=== PATIENT | male | born 1945 | race Caucasian/White ===

== ENCOUNTER 2018-03-03 16:43 | Inpatient (IN) | payer MEDICARE, OTHER ==
[~2018-03-03] VITALS: Ht 170.2 cm; Wt 72.0 kg
--- NOTE | 2018-03-03 11:30 | NUR ---
Patient in room ED 7. I have received report from Brittany BARLOW and had the opportunity to ask questions and assume patient care.
[2018-03-03 11:35] VITALS: BP 101/40
[2018-03-03] MEDS ORDERED: normal saline 1000ml 1,000 ML IV ONE (17:00)
[2018-03-03] MEDS ORDERED: pantoprazole IV 80 MG in normal saline 100ml IV soln 100 ML IV ONE (17:15)
[2018-03-03] MEDS ORDERED: ondansetron/PF 4mg/2ml inj IV ONE (17:15)
[2018-03-03] MEDS ORDERED: pantoprazole 40 MG vial IV ONE (17:20)
[2018-03-03 17:23] LABS: BASOPHILS % (AUTO) 0.1 % (0-1); EOSINOPHILS # (AUTO) 0.1 X10'3 (0-0.9); EOSINOPHILS % (AUTO) 1.2 % (0-6); LYMPHOCYTES # (AUTO) 0.8 X10'3 (1.1-4.8); LYMPHOCYTES % (AUTO) 12.7 % (21-51); MEAN CORPUSCULAR HEMOGLOBIN 30.7 PG (27.0-31.0); MEAN CORPUSCULAR HGB CONC 33.3 % (33.0-36.5); MEAN CORPUSCULAR VOLUME 92.4 FL (78-98); MEAN PLATELET VOLUME 8.9 FL (7.4-10.4); MONOCYTES # (AUTO) 0.4 X10'3 (0-0.9); NEUTROPHILS # (AUTO) 4.8 X10'3 (1.8-7.7); PLATELET COUNT 191 X10'3 (140-440); RED BLOOD COUNT 1.88 X10'6 (4.70-6.10); WHITE BLOOD COUNT 6.1 X10'3 (4.5-11.0)
[2018-03-03 17:26] LABS: HEMOGLOBIN 5.8 g/dl (14.0-17.9)
[2018-03-03 17:27] LABS: HEMATOCRIT 17.4 % (42.0-52.0)
[2018-03-03 17:29] LABS: INR 1.1 INR; PARTIAL THROMBOPLASTIN TIME 30 SECONDS (22-32); PROTHROMBIN TIME 10.7 SECONDS (9.0-12.0)
[2018-03-03 17:31] LABS: ALANINE AMINOTRANSFERASE 16 U/L (12-78); ALBUMIN/GLOBULIN RATIO 0.8 (1.1-1.5); ALKALINE PHOSPHATASE 50 IU/L (46-116); ANION GAP 16 (8-16); ASPARTATE AMINO TRANSFERASE 15 U/L (10-37); BILIRUBIN,TOTAL 0.3 MG/DL (0.1-1.0); BLOOD UREA NITROGEN 118 MG/DL (7-18); BUN/CREATININE RATIO 19.2 (5.4-32.0); CALCIUM 7.5 MG/DL (8.5-10.1); CHLORIDE 105 MMOL/L (99-107); CREATININE 6.14 MG/DL (0.60-1.10); GLUCOSE 170 MG/DL (70-104); POTASSIUM 5.1 MMOL/L (3.5-5.1); SODIUM 137 MMOL/L (135-145); TOTAL CARBON DIOXIDE 16.1 MMOL/L (24-32); TOTAL PROTEIN 6.6 G/DL (6.4-8.2); eGFR 9 ML/MIN
--- NOTE | 2018-03-03 17:33 | NUR ---
blood consent signed. pt resting vss
[2018-03-03] MEDS: pantoprazole 40MG/NS 100ML BAG 100 ML IV SCH ×2 (18:48→23:06)
--- NOTE | 2018-03-03 18:50 | NUR ---
pt is resting quietly on gurney, resp even and unlabored, waiting for blood transfusion, pt has no complaints, no dizziness, no chest pain/discomfort, no SOB, no n/v, protonix gtt started at 8mg/hr (20ml/hr)
--- NOTE | 2018-03-03 19:37 | NUR ---
per lab, one unit of blood is ready, 2nd unit has to come from [place], approx in 4 hours
[2018-03-03 19:56] VITALS: BP 91/43
--- NOTE | 2018-03-03 20:00 | NUR ---
1st unit PRBC started, see vital signs under transfusions
[2018-03-03 20:10] VITALS: BP 100/46
[2018-03-03 20:25] VITALS: BP 100/50
[2018-03-03 20:38] VITALS: BP 102/42
[2018-03-03] MEDS ORDERED: temazepam 15mg capsule PO PRN (21:00)
[2018-03-03 21:02] VITALS: BP 104/44
[2018-03-03] MEDS ORDERED: morphine 4 MG/ML inj SYRINge IV PRN ×2 (22:00)
[2018-03-03] MEDS ORDERED: acetaminophen 325mg tablet PO PRN ×2 (22:00)
[2018-03-03] MEDS ORDERED: ondansetron/PF 4mg/2ml inj IV PRN (22:00)
[2018-03-03] MEDS ORDERED: diphenhydrAMINE 25mg capsule PO PRN (22:00)
[2018-03-03] MEDS ORDERED: magnesium hydroxide 30ml (MOM) UD suspension PO PRN (22:00)
[2018-03-03] MEDS ORDERED: metoclopramide 5 mg/ml inj IV PRN (22:00)
[2018-03-03] MEDS ORDERED: bisacodyl 10mg suppository rectal RC PRN (22:00)
[2018-03-03] MEDS ORDERED: diphenhydrAMINE 50 mg/ml inj IV PRN (22:00)
[2018-03-03] MEDS ORDERED: mag hydrox/Alum hydrox/simeth 30ml oral suspension PO PRN (22:00)
[2018-03-03] MEDS ORDERED: dextrose 50%-water 50ml dispensing syringe IV PRN ×2 (22:05)
[2018-03-03] MEDS ORDERED: glucagon, human recombinant 1mg kit SUBCUT PRN (22:05)
[2018-03-03] MEDS ORDERED: insulin Lispro (HumaLOG) vial - multi-dose SQ SCH (22:05)
[2018-03-03] MEDS ORDERED: dextrose ORAL solution 15 GM/59 ML bottle PO PRN ×2 (22:05)
[2018-03-03] MEDS ORDERED: MESSAGE TO PHARMACY PO ONE (22:05)
[2018-03-03 22:30] LABS: HEMOGLOBIN A1C 7.9 % (4.5-6.2)
--- NOTE | 2018-03-03 22:34 | NUR ---
pt to CT,
[2018-03-03 22:45] LABS: CREATINE KINASE 35 U/L (39-308); LIPASE 300 U/L (73-393); MAGNESIUM 1.6 MG/DL (1.5-2.4); PHOSPHORUS 7.9 MG/DL (2.3-4.5)
[2018-03-03 22:48] LABS: TROPONIN I 1.05 NG/ML (0.0-0.05)
--- NOTE | 2018-03-03 22:54 | NUR ---
DR CHAVIS AWARE OF TROP 1.05, PT CONTINUES TO REST QUIETLY ON GURNEY, NO CHEST PAIN/DISCOMFORT, NO N/V, NO SOB, "I FEEL BETTER AFTER THE BLOOD", PT IS GCS 15, ALERT AND ORIENTED, RESP EVEN AND UNLABORED, SKIN PALE, WARM AND DRY, WAITING FOR BED ASSIGNMENT
[2018-03-03 22:55] LABS: PARTIAL THROMBOPLASTIN TIME 23 SECONDS (22-32); PROTHROMBIN TIME 10.5 SECONDS (9.0-12.0)
[2018-03-03] MEDS: normal saline 1000ml 1,000 ML IV SCH (23:06)
--- NOTE | 2018-03-03 23:15 | NUR ---
REPORT TO IBRAHIMA BARLOW
[2018-03-04] VITALS (22 sets, daily range): BP systolic 84–145; BP diastolic 30–67
[2018-03-04] MEDS: pantoprazole 40MG/NS 100ML BAG 100 ML IV SCH ×2 (01:00→04:27)
--- NOTE | 2018-03-04 06:50 | NUR ---
Patient in room PCU 3012. I have received report from YEN ALEXANDRA, and had the opportunity to ask questions and assume patient care.
[2018-03-04 06:51] LABS: BASOPHILS % (AUTO) 0.3 % (0-1); EOSINOPHILS # (AUTO) 0.2 X10'3 (0-0.9); EOSINOPHILS % (AUTO) 3.5 % (0-6); HEMATOCRIT 23.3 % (42.0-52.0); HEMOGLOBIN 7.8 g/dl (14.0-17.9); LYMPHOCYTES # (AUTO) 1.2 X10'3 (1.1-4.8); LYMPHOCYTES % (AUTO) 20.3 % (21-51); MEAN CORPUSCULAR HEMOGLOBIN 30.3 PG (27.0-31.0); MEAN CORPUSCULAR HGB CONC 33.6 % (33.0-36.5); MEAN CORPUSCULAR VOLUME 90.3 FL (78-98); MEAN PLATELET VOLUME 9.1 FL (7.4-10.4); MONOCYTES # (AUTO) 0.5 X10'3 (0-0.9); MONOCYTES % (AUTO) 7.9 % (2-12); PLATELET COUNT 182 X10'3 (140-440); RED BLOOD COUNT 2.57 X10'6 (4.70-6.10); RED CELL DISTRIBUTION WIDTH 16.5 % (11.5-14.5); WHITE BLOOD COUNT 5.9 X10'3 (4.5-11.0)
[2018-03-04 07:19] LABS: ALANINE AMINOTRANSFERASE 15 U/L (12-78); ALBUMIN 2.9 G/DL (3.4-5.0); ALBUMIN/GLOBULIN RATIO 0.8 (1.1-1.5); ALKALINE PHOSPHATASE 50 IU/L (46-116); ANION GAP 17 (8-16); ASPARTATE AMINO TRANSFERASE 12 U/L (10-37); BILIRUBIN,TOTAL 0.3 MG/DL (0.1-1.0); BLOOD UREA NITROGEN 119 MG/DL (7-18); BUN/CREATININE RATIO 19.7 (5.4-32.0); CALCIUM 7.6 MG/DL (8.5-10.1); CHLORIDE 108 MMOL/L (99-107); CHOL/HDL RATIO 2.6 (0.00-4.99); CHOLESTEROL 64 MG/DL (0-200); CREATININE 6.05 MG/DL (0.60-1.10); GLUCOSE 84 MG/DL (70-104); HDL CHOLESTEROL 25 MG/DL (35-60); LDL CHOLESTEROL 25 MG/DL (50-100); POTASSIUM 5.2 MMOL/L (3.5-5.1); SODIUM 140 MMOL/L (135-145); TOTAL PROTEIN 6.6 G/DL (6.4-8.2); TRIGLYCERIDES 130 MG/DL (20-135); eGFR 9 ML/MIN
[2018-03-04 07:42] LABS: TOTAL CARBON DIOXIDE 14.8 MMOL/L (24-32)
[2018-03-04] MEDS: normal saline 1000ml 1,000 ML IV SCH ×4 (07:58→18:54)
[2018-03-04] MEDS: docusate sod 100mg capsule PO SCH ×2 (08:00→20:00)
[2018-03-04] MEDS ORDERED: MIDAZolam 5mg/5ml vial ONE (08:50)
[2018-03-04] MEDS ORDERED: fentaNYL/PF 50MCG/1 ML 2ML syringe ONE (08:50)
[2018-03-04] MEDS ORDERED: LIDOcaine Viscous 15ml cup ONE (08:51)
--- NOTE | 2018-03-04 10:50 | NUR ---
PATIENT BACK FROM GI LAB
--- NOTE | 2018-03-04 10:59 | NUR ---
PAGED FOR ECHO
--- NOTE | 2018-03-04 11:30 | NUR ---
Spoke with Dr. Anderson about concerning BUN/Cr lab values who said she will order UA studies, IV fluids, and consult greens tier.
--- NOTE | 2018-03-04 11:56 | NUR ---
DM consult: Pt with A1c 7.9. Pt seen at bedside states he sees an MD q month for DM management, takes his meds per rx, and checks his BG levels 2 times a day with resulting numbers generally 160-170. Pt states he doesn't currently follow any special diet at home to help with DM management however he does look at CHO content on nutrition facts label. Pt denies interest in learning about alternative ways to monitor CHO intake at this time. Pt given written DM education with referral to outpatient DM class. All questions answered at this time. RD contact given to pt should he have any further questions. Will remain available. Addendum: 03/04/18 at [address] Amended: Links added.
[2018-03-04 13:21] LABS: CLARITY,URINE CLEAR (Clear); COLOR,URINE YELLOW (Yellow); GLUCOSE, URINE NEGATIVE (Neg); KETONES,URINE NEGATIVE (Neg); LEUKOCYTE ESTERASE ,URINE NEGATIVE (Neg); NITRITES, URINE NEGATIVE (Neg); OCCULT BLOOD,URINE NEGATIVE (Neg); PH,URINE 5.5 (4.8-8.0); PROTEIN,URINE 100 mg/dl (Neg); UROBILINOGEN,URINE 0.2 E.U/dL (0.2-1.0)
[2018-03-04 13:28] LABS: UA COLLECTION TYPE URINAL
[2018-03-04 13:29] LABS: BACTERIA,URINE FEW /HPF (Neg); HYALINE CASTS 0-3 /LPF (NEGATIVE); RBC,URINE 0-2 /HPF (0-2); SQUAMOUS EPITHELIAL CELL,UR FEW /LPF (FEW); WBC,URINE 0-4 /HPF (0-4)
[2018-03-04 13:43] LABS: TOTAL PROTEIN,URINE RANDOM 87.7 MG/DL
[2018-03-04 14:47] LABS: UA EOSINOPHILS NO EOS /HPF
[2018-03-04] MEDS ORDERED: PANT-47 PO (15:18)
[2018-03-04] MEDS ORDERED: DOCU100C41 PO (15:18)
[2018-03-04] MEDS ORDERED: LISI10TA4 PO (15:18)
[2018-03-04] MEDS ORDERED: FURO-149 PO (15:19)
[2018-03-04] MEDS ORDERED: AFRIN NS (15:20)
[2018-03-04] MEDS ORDERED: GEMF600T89 PO (15:21)
[2018-03-04] MEDS ORDERED: SODI30SP3 BOTHNARES (15:21)
[2018-03-04] MEDS ORDERED: METO-539 PO (15:23)
[2018-03-04] MEDS ORDERED: DIGO125T97 PO (15:23)
[2018-03-04] MEDS ORDERED: TERA10CA4 PO (15:24)
[2018-03-04] MEDS ORDERED: LIDO30CR TP (15:25)
[2018-03-04] MEDS ORDERED: CHOL100046 PO (15:28)
[2018-03-04] MEDS ORDERED: OMEG1CAP13 PO (15:28)
[2018-03-04] MEDS ORDERED: CLOP75TA33 PO (15:29)
[2018-03-04] MEDS ORDERED: ALBU8.5H8 IH (15:29)
[2018-03-04] MEDS ORDERED: ATOR40TA PO (15:30)
[2018-03-04] MEDS ORDERED: CYAN-19 PO (15:30)
[2018-03-04] MEDS ORDERED: ASPI-611 PO (15:30)
[2018-03-04] MEDS ORDERED: SPIR25TA5 PO (15:31)
[2018-03-04] MEDS ORDERED: AMLO10TA PO (15:32)
[2018-03-04] MEDS ORDERED: GUAI237S46 PO (15:33)
[2018-03-04] MEDS ORDERED: HUM7525 SQ (15:35)
[2018-03-04] MEDS ORDERED: INSU100V9 SQ (15:36)
--- NOTE | 2018-03-04 15:40 | NUR ---
patient c/o chest pain/pressure. EKG and troponin to be done. Dr. Monica yadav at this time. will continue to monitor.
[2018-03-04] MEDS ORDERED: FLUO20CA39 PO (15:42)
--- NOTE | 2018-03-04 15:46 | NUR ---
PAGED DR. MARIN ABOUT CHEST PAIN/PRESSURE "Re: [id number] JER[address] DYSON C/O CHEST PAIN AND PRESSURE. EKG AND TROPONIN BEING DONE PREVIOUS TROP WAS ELEVATED (1.05). THANKS, YURY [id number]"
--- NOTE | 2018-03-04 15:50 | NUR ---
RN BROUGHT EKG WITH PREVIOUS READING TO DR. MARIN IN HOSPITALIST OFFICE. RECEIVED VERBAL ORDERS FROM DR. MARIN FOR PLAVIX NOW AND TO RESUME PLAVIX, NITRO SUBLINGUAL, CBC+BMP WELL SERIAL TROPONINS. WILL CONTINUE TO MONITOR.
[2018-03-04] MEDS: nitroGLYCERIN 0.4mg SUBLingual tab SL PRN (16:15)
[2018-03-04] MEDS: clopidogrel 75mg tablet PO SCH (16:15)
[2018-03-04 16:39] LABS: BASOPHILS % (AUTO) 0.2 % (0-1); EOSINOPHILS # (AUTO) 0.2 X10'3 (0-0.9); EOSINOPHILS % (AUTO) 3.1 % (0-6); HEMATOCRIT 24.6 % (42.0-52.0); HEMOGLOBIN 8.2 g/dl (14.0-17.9); LYMPHOCYTES # (AUTO) 0.8 X10'3 (1.1-4.8); LYMPHOCYTES % (AUTO) 12.3 % (21-51); MEAN CORPUSCULAR HEMOGLOBIN 30.2 PG (27.0-31.0); MEAN CORPUSCULAR HGB CONC 33.2 % (33.0-36.5); MEAN CORPUSCULAR VOLUME 90.8 FL (78-98); MEAN PLATELET VOLUME 9.3 FL (7.4-10.4); MONOCYTES # (AUTO) 0.4 X10'3 (0-0.9); MONOCYTES % (AUTO) 5.7 % (2-12); NEUTROPHILS # (AUTO) 5.1 X10'3 (1.8-7.7); NEUTROPHILS % (AUTO) 78.7 % (42-75); PLATELET COUNT 191 X10'3 (140-440); RED BLOOD COUNT 2.71 X10'6 (4.70-6.10); RED CELL DISTRIBUTION WIDTH 16.7 % (11.5-14.5); WHITE BLOOD COUNT 6.5 X10'3 (4.5-11.0)
[2018-03-04 17:23] LABS: ANION GAP 19 (8-16); BLOOD UREA NITROGEN 114 MG/DL (7-18); BUN/CREATININE RATIO 19.6 (5.4-32.0); CALCIUM 7.5 MG/DL (8.5-10.1); CHLORIDE 107 MMOL/L (99-107); CREATININE 5.81 MG/DL (0.60-1.10); GLUCOSE 140 MG/DL (70-104); MAGNESIUM 1.6 MG/DL (1.5-2.4); PHOSPHORUS 7.8 MG/DL (2.3-4.5); POTASSIUM 4.9 MMOL/L (3.5-5.1); SODIUM 139 MMOL/L (135-145); eGFR 10 ML/MIN
--- NOTE | 2018-03-04 17:23 | NUR ---
paged Dr. Anderson for med rec "CAN YOU ADDRESS MED [place]EM[place]H [place] [address]? THANK YOU, YURY [facility] [phone]"
[2018-03-04 17:27] LABS: TOTAL CARBON DIOXIDE 13.2 MMOL/L (24-32)
--- NOTE | 2018-03-04 18:07 | NUR ---
Patient in room PCU 3012. I have received report from Steffany BARLOW and had the opportunity to ask questions and assume patient care.
--- NOTE | 2018-03-04 18:07 | NUR ---
Problems reprioritized. Patient report given, questions answered & plan of care reviewed with YEN STALLINGS.
[2018-03-05] VITALS (7 sets, daily range): BP systolic 132–160; BP diastolic 47–61
[2018-03-05] MEDS: normal saline 1000ml 1,000 ML IV SCH ×3 (01:37→13:58)
[2018-03-05 03:07] LABS: BASOPHILS % (AUTO) 0.4 % (0-1); EOSINOPHILS # (AUTO) 0.1 X10'3 (0-0.9); EOSINOPHILS % (AUTO) 1.5 % (0-6); HEMATOCRIT 25.4 % (42.0-52.0); HEMOGLOBIN 8.3 g/dl (14.0-17.9); LYMPHOCYTES # (AUTO) 0.6 X10'3 (1.1-4.8); LYMPHOCYTES % (AUTO) 7.7 % (21-51); MEAN CORPUSCULAR HEMOGLOBIN 29.7 PG (27.0-31.0); MEAN CORPUSCULAR HGB CONC 32.7 % (33.0-36.5); MEAN PLATELET VOLUME 8.8 FL (7.4-10.4); MONOCYTES # (AUTO) 0.2 X10'3 (0-0.9); MONOCYTES % (AUTO) 2.9 % (2-12); NEUTROPHILS # (AUTO) 6.5 X10'3 (1.8-7.7); NEUTROPHILS % (AUTO) 87.5 % (42-75); PLATELET COUNT 219 X10'3 (140-440); RED CELL DISTRIBUTION WIDTH 16.5 % (11.5-14.5); WHITE BLOOD COUNT 7.4 X10'3 (4.5-11.0)
[2018-03-05 03:22] LABS: GLUCOSE 156 MG/DL (70-104); SODIUM 141 MMOL/L (135-145)
[2018-03-05 03:23] LABS: ALANINE AMINOTRANSFERASE 14 U/L (12-78); ALBUMIN 2.9 G/DL (3.4-5.0); ALBUMIN/GLOBULIN RATIO 0.8 (1.1-1.5); ALKALINE PHOSPHATASE 63 IU/L (46-116); ANION GAP 16 (8-16); ASPARTATE AMINO TRANSFERASE 11 U/L (10-37); BILIRUBIN,TOTAL 0.2 MG/DL (0.1-1.0); BLOOD UREA NITROGEN 109 MG/DL (7-18); BUN/CREATININE RATIO 22.2 (5.4-32.0); CALCIUM 7.5 MG/DL (8.5-10.1); CHLORIDE 110 MMOL/L (99-107); CREATININE 4.92 MG/DL (0.60-1.10); POTASSIUM 4.9 MMOL/L (3.5-5.1); TOTAL PROTEIN 6.7 G/DL (6.4-8.2); eGFR 12 ML/MIN
[2018-03-05 03:24] LABS: TOTAL CARBON DIOXIDE 14.8 MMOL/L (24-32)
--- NOTE | 2018-03-05 06:14 | NUR ---
Problems reprioritized. Patient report given, questions answered & plan of care reviewed with Bryan BARLOW. Addendum: 03/05/18 at 0615 by Heavenly Martin RN [place] BARLOW
--- NOTE | 2018-03-05 06:15 | NUR ---
Patient in room PCU 3012. I have received report from Heavenly BARLOW and had the opportunity to ask questions and assume patient care.
[2018-03-05] MEDS: docusate sod 100mg capsule PO SCH ×2 (07:43→20:26)
[2018-03-05] MEDS: clopidogrel 75mg tablet PO SCH (07:43)
[2018-03-05] MEDS ORDERED: magnesium hydroxide 30ml (MOM) UD suspension PO ONE (08:40)
[2018-03-05] MEDS ORDERED: metoprolol tartrate 25mg tablet PO SCH (08:40)
--- NOTE | 2018-03-05 09:10 | NUR ---
PIV in left forearm D/C'd at 0910. Catheter intact. IV was leaking and catheter had been dislodged from vein.
[2018-03-05] MEDS: isosorbide mononitrate 30mg tab.SR.24H PO SCH (10:21)
[2018-03-05] MEDS: atorvastatin 20mg tablet PO SCH (10:21)
--- NOTE | 2018-03-05 13:47 | NUR ---
Paged Dr. Edward to address med rec. PAGER ID: [phone] MESSAGE: Bryan Rocha RN [phone] Ajay Gunter: Per Pharmacy, please address patient's med rec. Thank you.
[2018-03-05] MEDS: pantoprazole 40 MG vial IV SCH (16:58)
[2018-03-05] MEDS ORDERED: albuterol 2.5 MG/3 ML nebule NEB PRN (17:00)
[2018-03-05] MEDS ORDERED: EPA PO SCH (20:00)
[2018-03-05] MEDS ORDERED: DOCOSAHEXANOIC ACID PO SCH (20:00)
[2018-03-05] MEDS: terazosin 5mg capsule PO SCH (20:27)
[2018-03-05] MEDS: gemfibrozil 600mg tablet PO SCH (20:28)
[2018-03-06] VITALS (13 sets, daily range): BP systolic 99–141; BP diastolic 38–61
--- NOTE | 2018-03-06 06:10 | NUR ---
Problems reprioritized. Patient report given, questions answered & plan of care reviewed with Zaida BARLOW.
--- NOTE | 2018-03-06 06:58 | NUR ---
Patient in room PCU 3012. I have received report from YEN ALEXANDRA SBAR AND BEDSIDE and had the opportunity to ask questions and assume patient care.
[2018-03-06 07:09] LABS: BASOPHILS % (AUTO) 0.4 % (0-1); EOSINOPHILS # (AUTO) 0.2 X10'3 (0-0.9); EOSINOPHILS % (AUTO) 3.4 % (0-6); LYMPHOCYTES # (AUTO) 0.8 X10'3 (1.1-4.8); LYMPHOCYTES % (AUTO) 14.9 % (21-51); MEAN CORPUSCULAR HGB CONC 33.5 % (33.0-36.5); MEAN CORPUSCULAR VOLUME 89.4 FL (78-98); MEAN PLATELET VOLUME 8.6 FL (7.4-10.4); MONOCYTES # (AUTO) 0.3 X10'3 (0-0.9); MONOCYTES % (AUTO) 5.5 % (2-12); NEUTROPHILS # (AUTO) 3.8 X10'3 (1.8-7.7); NEUTROPHILS % (AUTO) 75.8 % (42-75); PLATELET COUNT 225 X10'3 (140-440); RED BLOOD COUNT 2.28 X10'6 (4.70-6.10); RED CELL DISTRIBUTION WIDTH 17.5 % (11.5-14.5); WHITE BLOOD COUNT 5.1 X10'3 (4.5-11.0)
[2018-03-06] MEDS ORDERED: metoprolol succinate 25mg (24-HOUR) SR. Tablet PO SCH (08:00)
[2018-03-06] MEDS ORDERED: pantoprazole 40mg Tablet.DR PO SCH (08:00)
[2018-03-06] MEDS: pantoprazole 40 MG vial IV SCH (08:00)
[2018-03-06] MEDS ORDERED: clopidogrel 75mg tablet PO SCH (08:00)
[2018-03-06] MEDS: docusate sod 100mg capsule PO SCH ×3 (08:00→20:03)
[2018-03-06] MEDS: atorvastatin 20mg tablet PO SCH ×2 (08:00→09:01)
[2018-03-06] MEDS: clopidogrel 75mg tablet PO SCH (08:00)
[2018-03-06 08:03] LABS: ALANINE AMINOTRANSFERASE 13 U/L (12-78); ALBUMIN 2.6 G/DL (3.4-5.0); ALBUMIN/GLOBULIN RATIO 0.7 (1.1-1.5); ALKALINE PHOSPHATASE 45 IU/L (46-116); ANION GAP 14 (8-16); ASPARTATE AMINO TRANSFERASE 11 U/L (10-37); BILIRUBIN,TOTAL 0.4 MG/DL (0.1-1.0); BLOOD UREA NITROGEN 78 MG/DL (7-18); BUN/CREATININE RATIO 25.2 (5.4-32.0); CALCIUM 7.8 MG/DL (8.5-10.1); CHLORIDE 112 MMOL/L (99-107); GLUCOSE 108 MG/DL (70-104); POTASSIUM 4.5 MMOL/L (3.5-5.1); SODIUM 142 MMOL/L (135-145); TOTAL CARBON DIOXIDE 15.7 MMOL/L (24-32); TOTAL PROTEIN 6.2 G/DL (6.4-8.2); eGFR 20 ML/MIN
[2018-03-06 08:07] LABS: HEMATOCRIT 20.4 % (42.0-52.0); HEMOGLOBIN 6.9 g/dl (14.0-17.9)
--- NOTE | 2018-03-06 08:12 | NUR ---
paged dr. escobar PAGER ID: [phone] MESSAGE: nancy heath [phone] [id number] critical h/h 6.9 20.4
--- NOTE | 2018-03-06 08:19 | NUR ---
spoke with dr. escobar, notified of critical labs. per dr. escobar hold plavix, give asa. he will order blood
[2018-03-06] MEDS ORDERED: acetaminophen 325mg tablet PO ONE (08:20)
[2018-03-06] MEDS ORDERED: diphenhydrAMINE 25mg capsule PO ONE (08:20)
--- NOTE | 2018-03-06 08:35 | NUR ---
Dr. Cheyanne yadav PAGER ID: [phone] MESSAGE: nancy cuba [phone] [id number] c/o chest pain/pressure 2 doing ekg Addendum: 03/06/18 at 0838 by Nancy Avila RN current vital signs 131/56 hr 112 o2 96% 3l nc per dr. escobar admin ntg
[2018-03-06] MEDS: nitroGLYCERIN 0.4mg SUBLingual tab SL PRN (08:40)
--- NOTE | 2018-03-06 08:43 | NUR ---
pt states chest pain/ pressure is easing up current v/s 132/58 hr 76 o2 95%
--- NOTE | 2018-03-06 08:54 | NUR ---
Dr. Edward reviewed ecg and is in to see pt family at bedside. Addendum: 03/06/18 at 0855 by Zaida Avila RN pt states chest pain/ pressure has resolved
[2018-03-06] MEDS: amLODIPine 5mg tablet PO SCH (08:58)
[2018-03-06] MEDS: cyanocobalamin 500mcg tablet PO SCH (08:59)
[2018-03-06] MEDS: FLUoxetine 20mg capsule PO SCH (08:59)
[2018-03-06] MEDS: aspirin 81mg tablet.DR PO SCH (08:59)
[2018-03-06] MEDS: vitamin D (cholecalciferol) 1,000 unit tablet PO SCH (08:59)
[2018-03-06] MEDS: gemfibrozil 600mg tablet PO SCH ×2 (09:00→20:03)
--- NOTE | 2018-03-06 09:00 | NUR ---
ECG FAXED TO DR. BARDSHAW BY ER
[2018-03-06] MEDS: isosorbide mononitrate 30mg tab.SR.24H PO SCH (09:01)
--- NOTE | 2018-03-06 09:30 | NUR ---
ECG REVIEWED BY KRISTI TAI, NO ORDERS RECEIVED. PER KRISTI BRADSHAW HAS REVIEWED ECG WELL
[2018-03-06] MEDS ORDERED: metoprolol succinate 25mg (24-HOUR) SR. Tablet PO ONE (09:45)
--- NOTE | 2018-03-06 10:00 | NUR ---
PER KRISTI TAI ASSET RECOVERY SPECIALIST GIVE METOPROLOL AFTER BLOOD IS DONE TRANSFUSING
[2018-03-06] MEDS ORDERED: furosemide 40mg/4ml inj IV ONE (10:20)
[2018-03-06 16:33] LABS: BASOPHILS % (AUTO) 0.3 % (0-1); EOSINOPHILS # (AUTO) 0.3 X10'3 (0-0.9); EOSINOPHILS % (AUTO) 5.4 % (0-6); HEMATOCRIT 24.1 % (42.0-52.0); HEMOGLOBIN 8.1 g/dl (14.0-17.9); LYMPHOCYTES # (AUTO) 0.9 X10'3 (1.1-4.8); LYMPHOCYTES % (AUTO) 16.5 % (21-51); MEAN CORPUSCULAR HEMOGLOBIN 29.8 PG (27.0-31.0); MEAN CORPUSCULAR HGB CONC 33.5 % (33.0-36.5); MEAN PLATELET VOLUME 7.8 FL (7.4-10.4); MONOCYTES # (AUTO) 0.4 X10'3 (0-0.9); MONOCYTES % (AUTO) 6.9 % (2-12); NEUTROPHILS % (AUTO) 70.9 % (42-75); PLATELET COUNT 212 X10'3 (140-440); RED BLOOD COUNT 2.71 X10'6 (4.70-6.10); RED CELL DISTRIBUTION WIDTH 15.8 % (11.5-14.5); WHITE BLOOD COUNT 5.6 X10'3 (4.5-11.0)
--- NOTE | 2018-03-06 18:23 | NUR ---
Problems reprioritized. Patient report given, questions answered & plan of care reviewed with YEN KELLEY.
--- NOTE | 2018-03-06 18:34 | NUR ---
Patient in room PCU 3012. I have received report from Zaida BARLOW and had the opportunity to ask questions and assume patient care.
[2018-03-06] MEDS: pantoprazole 40mg Tablet.DR PO SCH (20:03)
[2018-03-06] MEDS: terazosin 5mg capsule PO SCH (21:18)
[2018-03-06 21:59] LABS: OCCULT BLOOD STOOL NEGATIVE (Neg)
[2018-03-07 02:00] VITALS: BP 137/67
[2018-03-07 06:00] VITALS: BP 133/60
[2018-03-07 06:16] LABS: ALANINE AMINOTRANSFERASE 16 U/L (12-78); ALBUMIN 2.7 G/DL (3.4-5.0); ALBUMIN/GLOBULIN RATIO 0.7 (1.1-1.5); ALKALINE PHOSPHATASE 51 IU/L (46-116); ANION GAP 15 (8-16); ASPARTATE AMINO TRANSFERASE 13 U/L (10-37); BILIRUBIN,TOTAL 0.4 MG/DL (0.1-1.0); BLOOD UREA NITROGEN 67 MG/DL (7-18); BUN/CREATININE RATIO 24.7 (5.4-32.0); CALCIUM 8.1 MG/DL (8.5-10.1); CHLORIDE 110 MMOL/L (99-107); CREATININE 2.71 MG/DL (0.60-1.10); GLUCOSE 131 MG/DL (70-104); POTASSIUM 4.7 MMOL/L (3.5-5.1); SODIUM 141 MMOL/L (135-145); TOTAL CARBON DIOXIDE 16.5 MMOL/L (24-32); TOTAL PROTEIN 6.4 G/DL (6.4-8.2); eGFR 23 ML/MIN
--- NOTE | 2018-03-07 06:20 | NUR ---
Problems reprioritized. Patient report given, questions answered & plan of care reviewed with Isabel BARLOW.
--- NOTE | 2018-03-07 06:25 | NUR ---
Patient in room PCU 3012. I have received report from Krystin BARLOW and had the opportunity to ask questions and assume patient care.
[2018-03-07 06:31] LABS: BASOPHILS % (AUTO) 0.5 % (0-1); EOSINOPHILS # (AUTO) 0.4 X10'3 (0-0.9); EOSINOPHILS % (AUTO) 5.9 % (0-6); HEMATOCRIT 24.7 % (42.0-52.0); HEMOGLOBIN 8.3 g/dl (14.0-17.9); LYMPHOCYTES # (AUTO) 0.6 X10'3 (1.1-4.8); LYMPHOCYTES % (AUTO) 9.2 % (21-51); MEAN CORPUSCULAR HEMOGLOBIN 29.8 PG (27.0-31.0); MEAN CORPUSCULAR HGB CONC 33.5 % (33.0-36.5); MEAN CORPUSCULAR VOLUME 89.2 FL (78-98); MEAN PLATELET VOLUME 8.4 FL (7.4-10.4); MONOCYTES # (AUTO) 0.4 X10'3 (0-0.9); MONOCYTES % (AUTO) 5.6 % (2-12); NEUTROPHILS # (AUTO) 5.3 X10'3 (1.8-7.7); NEUTROPHILS % (AUTO) 78.8 % (42-75); PLATELET COUNT 232 X10'3 (140-440); RED BLOOD COUNT 2.77 X10'6 (4.70-6.10); RED CELL DISTRIBUTION WIDTH 15.7 % (11.5-14.5); WHITE BLOOD COUNT 6.8 X10'3 (4.5-11.0)
[2018-03-07 07:51] LABS: ANISOCYTOSIS 1+; HYPOCHROMASIA 1+; PLATELET ESTIMATE NORMAL; POLYCHROMASIA 1+; ROULEAUX 1+; SPHEROCYTES FEW
[2018-03-07] MEDS: docusate sod 100mg capsule PO SCH ×2 (08:00→08:24)
[2018-03-07] MEDS ORDERED: metoprolol succinate 25mg (24-HOUR) SR. Tablet PO SCH (08:00)
[2018-03-07] MEDS: vitamin D (cholecalciferol) 1,000 unit tablet PO SCH (08:19)
[2018-03-07] MEDS ORDERED: magnesium 2GM in 50ml NS 50 ML IV ONE (08:20)
[2018-03-07] MEDS: gemfibrozil 600mg tablet PO SCH (08:20)
[2018-03-07] MEDS: FLUoxetine 20mg capsule PO SCH (08:21)
[2018-03-07] MEDS: isosorbide mononitrate 30mg tab.SR.24H PO SCH (08:21)
[2018-03-07] MEDS: atorvastatin 20mg tablet PO SCH ×2 (08:22→08:33)
[2018-03-07] MEDS: aspirin 81mg tablet.DR PO SCH (08:23)
[2018-03-07] MEDS: cyanocobalamin 500mcg tablet PO SCH (08:23)
[2018-03-07] MEDS: pantoprazole 40mg Tablet.DR PO SCH (08:24)
[2018-03-07] MEDS: amLODIPine 5mg tablet PO SCH (08:24)
[2018-03-07] MEDS ORDERED: metoprolol succinate 25mg (24-HOUR) SR. Tablet PO ONE (08:35)
[2018-03-07] MEDS ORDERED: clopidogrel 75mg tablet PO SCH (08:35)
[2018-03-07 08:52] LABS: MAGNESIUM 1.7 MG/DL (1.5-2.4)
[2018-03-07] MEDS ORDERED: NITR0.4T51 SL (09:51)
[2018-03-07] MEDS ORDERED: ISOS30TA6 PO (09:51)
--- NOTE | 2018-03-07 10:39 | NUR ---
messaged Dr Edward that pt is having nose bleed. Dr Edward ordered afrin nasal spray for pt
[2018-03-07] MEDS ORDERED: oxymetazoline 15 ML nasal spray NS SCH (10:50)
[2018-03-07] MEDS ORDERED: FLUO20CA39 PO (10:55)
[2018-03-07 11:00] VITALS: BP 99/39
[2018-03-07 11:30] VITALS: BP 110/47
--- NOTE | 2018-03-07 12:00 | NUR ---
pt nose stop bleeding , discharge instructions given to pt and his daughter. IV dc'd right wrist. catheter intact. prescriptions given. [facility]. prescriptions for nitroglycerin,prozac,and Isosorbide,
--- NOTE | 2018-03-07 12:30 | NUR ---
pt discharge via wheelchair to private car. pt alert and oriented. no complaints of pain.
[2018-03-08] MEDS ORDERED: metoprolol succinate 25mg (24-HOUR) SR. Tablet PO SCH (08:00)
== END 2018-03-07 12:30 | disposition home health service (06) | DRG 377 ==
LOC: ER 16:44 → ED HOLD 21:58 → PCU 3S 23:00 → EDBEDREQSVC 23:01 → EDBEDREQ 23:01 → CMPBEDREQ 03-04 00:16
PROVIDERS: ADMIT Family Medicine; ATTEND Internal Medicine
PROC: 30233N1 Transfusion of Nonautologous Red Blood Cells into Peripheral Vein, Percutaneous Approach (ICD-10-PCS; principal; 2018-03-03)
PROC: 30233N1 Transfusion of Nonautologous Red Blood Cells into Peripheral Vein, Percutaneous Approach (ICD-10-PCS; 2018-03-04)
PROC: 0DB98ZZ Excision of Duodenum, Via Natural or Artificial Opening Endoscopic (ICD-10-PCS; 2018-03-04)
PROC: 0DB68ZX Excision of Stomach, Via Natural or Artificial Opening Endoscopic, Diagnostic (ICD-10-PCS; 2018-03-04)
PROC: 30233N1 Transfusion of Nonautologous Red Blood Cells into Peripheral Vein, Percutaneous Approach (ICD-10-PCS; 2018-03-06)
DX: K29.71 Gastritis, unspecified, with bleeding (principal); I21.A1 Myocardial infarction type 2; D62 Acute posthemorrhagic anemia; N17.9 Acute kidney failure, unspecified; I50.22 Chronic systolic (congestive) heart failure; I13.0 Hypertensive heart and chronic kidney disease with heart failure and stage 1 through stage 4 chronic kidney disease, or unspecified chronic kidney disease; N18.4 Chronic kidney disease, stage 4 (severe); Q85.8 Other phakomatoses, not elsewhere classified; E11.22 Type 2 diabetes mellitus with diabetic chronic kidney disease; E11.51 Type 2 diabetes mellitus with diabetic peripheral angiopathy without gangrene; E78.00 Pure hypercholesterolemia, unspecified; E78.5 Hyperlipidemia, unspecified; I25.10 Atherosclerotic heart disease of native coronary artery without angina pectoris; I65.29 Occlusion and stenosis of unspecified carotid artery; J44.9 Chronic obstructive pulmonary disease, unspecified; K31.7 Polyp of stomach and duodenum; K80.20 Calculus of gallbladder without cholecystitis without obstruction; R04.0 Epistaxis; Z95.1 Presence of aortocoronary bypass graft; Z89.612 Acquired absence of left leg above knee; Z98.62 Peripheral vascular angioplasty status; I25.2 Old myocardial infarction; Z79.899 Other long term (current) drug therapy; Z79.82 Long term (current) use of aspirin; Z87.891 Personal history of nicotine dependence
CPT/HCPCS: 36415; 43239; 43251; 71045; 74176; 76775; 80048; 80053; 80061; 81001; 82272; 82550; 82570; 82948; 83036; 83605; 83690; 83735; 83880; 84100; 84133; 84156; 84300; 84443; 84484; 85025; 85610; 85730; 86870; 86885; 86900; 86901; 86902; 86905; 86920; 86922; 87070; 87207; 93005; 93306; 96361; 96374; 96375; 99152; 99285; A4620; C9113; G0378; J1940; J2250; J2405; J3010; J3420; J3475; J7030; P9016; Q0163